=== PATIENT | male | born 1965 | race Caucasian/White ===

== ENCOUNTER 2017-08-08 08:01 | Emergency (ER) | payer MEDICARE ==
[~2017-08-08] VITALS: Ht 170.2 cm; Wt 100.0 kg
[2017-08-08 10:02] LABS: URINE BILIRUBIN - DIPSTICK NEGATIVE (NEGATIVE); URINE BLOOD DIPSTICK NEGATIVE (NEGATIVE); URINE COLOR YELLOW; URINE GLUCOSE - DIPSTICK NEGATIVE (NEGATIVE); URINE KETONE NEGATIVE (NEGATIVE); URINE LEUK ESTERASE NEGATIVE (NEGATIVE); URINE NITRITE - DIPSTICK NEGATIVE (Negative); URINE PH 6.5 (4.5-8.0); URINE PROTEIN - DIPSTICK NEGATIVE (NEG-TRACE); URINE SPECIFIC GRAVITY <=1.005; URINE UROBILINOGEN - DIPSTICK 0.2 E.U./dL (0.2)
[2017-08-08 10:08] LABS: URINE CLARITY CLEAR
[2017-08-08] MEDS ORDERED: ASPERCREME LIDOCA41 TOP (10:20)
[2017-08-08 10:41] VITALS: BP 148/81
== END 2017-08-08 10:47 | disposition home or self-care (01) ==
LOC: ED 08:01
PROVIDERS: Family Medicine
DX: M54.5 Low back pain (principal); E78.5 Hyperlipidemia, unspecified; I73.9 Peripheral vascular disease, unspecified; F17.210 Nicotine dependence, cigarettes, uncomplicated